=== PATIENT | female | born 1970 | race Two or more races ===

== ENCOUNTER → 2020-02-06 11:59 | Outpatient (CLI) | payer OTHER | END | disposition home or self-care (01) | LOC: LAB 11:59 | DX: E03.8 Other specified hypothyroidism (principal); Z13.6 Encounter for screening for cardiovascular disorders; Z00.00 Encounter for general adult medical examination without abnormal findings; Z13.1 Encounter for screening for diabetes mellitus; E28.310 Symptomatic premature menopause; E55.9 Vitamin D deficiency, unspecified; M54.5 Low back pain ==

== ENCOUNTER → 2020-02-06 | Outpatient (CLI) | payer OTHER | END | disposition home or self-care (01) | LOC: MAMO-SONO 12:37 | DX: Z12.31 Encounter for screening mammogram for malignant neoplasm of breast (principal) ==

== ENCOUNTER 2020-02-19 11:33 | Outpatient (CLI) | payer OTHER | END 2020-02-19 11:43 | disposition home or self-care (01) | LOC: SONOGRAMA 11:33 → MAMO-SONO 13:15 | PROVIDERS: ATTEND Obstetrics & Gynecology | DX: N91.1 Secondary amenorrhea (principal) ==

== ENCOUNTER 2020-02-19 13:18 | Outpatient (CLI) | payer OTHER | END 2020-02-19 13:42 | disposition home or self-care (01) | LOC: NUCLEAR 13:18 | DX: M81.8 Other osteoporosis without current pathological fracture (principal); Z13.820 Encounter for screening for osteoporosis ==

== ENCOUNTER → 2020-03-11 12:23 | Outpatient (CLI) | payer OTHER | END | disposition home or self-care (01) | LOC: LAB 12:23 | PROVIDERS: ATTEND Radiology Diagnostic Radiology | DX: N20.0 Calculus of kidney (principal) ==

== ENCOUNTER 2020-05-13 08:51 | Outpatient (CLI) | payer OTHER | END 2020-05-13 08:56 | disposition home or self-care (01) | LOC: LAB 08:51 | DX: E22.1 Hyperprolactinemia (principal) ==

== ENCOUNTER 2023-02-01 14:15 | Outpatient (CLI) | payer OTHER | END 2023-02-01 14:17 | disposition home or self-care (01) | LOC: LAB 14:15 | DX: N95.1 Menopausal and female climacteric states (principal); E55.9 Vitamin D deficiency, unspecified ==

== ENCOUNTER 2023-02-15 14:23 | Outpatient (CLI) | payer OTHER | END 2023-02-15 14:27 | disposition home or self-care (01) | LOC: LAB 14:23 | PROVIDERS: ATTEND Obstetrics & Gynecology | DX: N30.00 Acute cystitis without hematuria (principal) ==

== ENCOUNTER → 2023-02-19 | Outpatient (CLI) | payer OTHER | END | disposition home or self-care (01) | LOC: NUCLEAR 12:54 | PROVIDERS: ATTEND Obstetrics & Gynecology | DX: M81.0 Age-related osteoporosis without current pathological fracture (principal) ==

== ENCOUNTER → 2024-02-08 09:43 | Outpatient (CLI) | payer OTHER ==
[2024-02-08 10:55] LABS: HEMATOCRIT 39.4 % (36.0-45.00); HEMOGLOBIN 13.6 g/dL (12.0-15.00); MEAN CELL VOLUME 93.2 fL (80.00-100.00); MEAN CORPUSCULAR HEMOGLOBIN 32.1 pg (27.00-32.0); MEAN CORPUSCULAR HGB CONC 34.5 g/dl (32.0-36.0); PLATELET COUNT 213 K/uL (150-450); RED BLOOD COUNT 4.23 M/uL (4.00-6.00); RED CELL DISTRIBUTION WIDTH 13.5 % (11.5-14.5)
[2024-02-08 10:56] LABS: URINE APPEARANCE Clear; URINE BILIRRUBIN Negative (NEGATIVE); URINE BLOOD Negative; URINE COLOR Yellow; URINE GLUCOSE Negative (NEGATIVE); URINE LEUKOCYTE Negative; URINE NITRATE Negative; URINE PROTEIN Negative (NEGATIVE); URINE UROBILINOGEN 0.2 E.U./dl
[2024-02-08 11:12] LABS: URINE BACTERIA 2.5 uL (0.0-1933); URINE EPITHELIAL CELLS 0.4 uL (0.0-38.8); URINE RBC 1.9 uL (0.0-20.8); URINE WBC 0.9 uL (0.0-23.2)
[2024-02-08 11:42] LABS: ALBUMIN 4.4 gm/dL (3.4-5.0); BILIRUBIN TOTAL 0.39 mg/dL (0.3-1.2); CALCIUM 10.1 mg/dL (8.5-10.1); CHOL HDL RATIO 3.2 (0-5.0); CREATININE SERUM 0.91 mg/dL (0.55-1.02); GFR 64.92; GLOBULINA 3.2 G/DL (2.4-3.5); POTASSIUM 4.38 mEq/L (3.5-5.1); TOTAL PROTEIN 7.6 gm/dL (6.4-8.2); TSH 2.06 uIU/mL (0.358-3.74)
[2024-02-09 11:12] LABS: LEUTEINIZING HORMONE 33.5 mIU/mL (.)
== END | disposition home or self-care (01) ==
LOC: LAB 09:43
PROVIDERS: ATTEND Obstetrics & Gynecology
DX: E55.9 Vitamin D deficiency, unspecified (principal); E34.9 Endocrine disorder, unspecified; E78.9 Disorder of lipoprotein metabolism, unspecified; N39.0 Urinary tract infection, site not specified; E78.5 Hyperlipidemia, unspecified; N91.2 Amenorrhea, unspecified

== ENCOUNTER 2024-02-08 10:19 | Outpatient (CLI) | payer OTHER | END 2024-02-08 10:23 | disposition home or self-care (01) | LOC: MAMO-SONO 10:19 | PROVIDERS: ATTEND Obstetrics & Gynecology | DX: N64.59 Other signs and symptoms in breast (principal) ==

== ENCOUNTER → 2024-05-15 16:35 | Outpatient (CLI) | payer OTHER ==
[2024-05-15 18:26] LABS: CREATININE SERUM 0.79 mg/dL (0.55-1.02); GFR 76.13
== END | disposition home or self-care (01) ==
LOC: LAB 16:35
DX: Z01.812 Encounter for preprocedural laboratory examination (principal)

== ENCOUNTER 2024-06-23 07:08 | Day surgery (SDC) | payer OTHER ==
[2024-06-21 09:02] LABS: PH,URINE 5.5 (5.0-8.0); URINE APPEARANCE Clear; URINE BILIRRUBIN Negative (NEGATIVE); URINE BLOOD Negative; URINE COLOR Yellow; URINE GLUCOSE Negative (NEGATIVE); URINE KETONE Negative (NEGATIVE); URINE LEUKOCYTE Negative; URINE NITRATE Negative; URINE PROTEIN Negative (NEGATIVE); URINE UROBILINOGEN 0.2 E.U./dl
[2024-06-21 09:06] LABS: URINE BACTERIA 20.1 uL (0.0-1933); URINE EPITHELIAL CELLS 1.6 uL (0.0-38.8); URINE RBC 11.9 uL (0.0-20.8); URINE WBC 2.6 uL (0.0-23.2)
[2024-06-21 09:07] LABS: HEMATOCRIT 41.2 % (36.0-45.00); HEMOGLOBIN 14.2 g/dL (12.0-15.00); MEAN CELL VOLUME 92.5 fL (80.00-100.00); MEAN CORPUSCULAR HGB CONC 34.5 g/dl (32.0-36.0); PLATELET COUNT 199 K/uL (150-450); RED BLOOD COUNT 4.45 M/uL (4.00-6.00); RED CELL DISTRIBUTION WIDTH 13.7 % (11.5-14.5)
[2024-06-21 09:19] LABS: INR 0.97; PARTIAL THROMBOPLASTIN TIME 27.3 SECONDS (22.0-34.0); PROTHROMBIN TIME 10.6 SECONDS (9.0-11.5)
[2024-06-21 09:54] LABS: ALBUMIN 4.3 gm/dL (3.4-5.0); BILIRUBIN TOTAL 0.26 mg/dL (0.3-1.2); CALCIUM 9.6 mg/dL (8.5-10.1); CREATININE SERUM 0.82 mg/dL (0.55-1.02); GFR 72.92; GLOBULINA 3.3 G/DL (2.4-3.5); POTASSIUM 4.08 mEq/L (3.5-5.1); TOTAL PROTEIN 7.6 gm/dL (6.4-8.2)
[2024-06-21 10:00] VITALS: BP 116/79
[~2024-06-23] VITALS: Ht 162.6 cm; Wt 81.6 kg
[2024-06-23] MEDS ORDERED: CIPROFLOXACIN IN 5 % DEXTROSE 400 MG/200 ML PIGGYBAG IV ONE (22:45)
[2024-06-23] MEDS ORDERED: CHLORHEXIDINE GLUCONATE 120 ML BOTTLE TOP ONE (22:45)
[2024-06-24] MEDS ORDERED: MORPHINE SULFATE 4 MG/ML VIAL IV ONE ×2 (01:25→01:55)
== END 2024-06-24 03:15 | disposition home or self-care (01) ==
LOC: CIR.AMB 07:08
PROVIDERS: ATTEND Surgery
DX: C50.411 Malignant neoplasm of upper-outer quadrant of right female breast (principal); R59.0 Localized enlarged lymph nodes

== ENCOUNTER 2024-09-23 07:22 | Outpatient (CLI) | payer OTHER ==
[2024-09-23 08:22] LABS: HEMATOCRIT 39.9 % (36.0-45.00); HEMOGLOBIN 13.5 g/dL (12.0-15.00); MEAN CELL VOLUME 92.4 fL (80.00-100.00); MEAN CORPUSCULAR HEMOGLOBIN 31.2 pg (27.00-32.0); MEAN CORPUSCULAR HGB CONC 33.8 g/dl (32.0-36.0); PLATELET COUNT 208 K/uL (150-450); RED BLOOD COUNT 4.31 M/uL (4.00-6.00); RED CELL DISTRIBUTION WIDTH 13.2 % (11.5-14.5)
[2024-09-23 09:18] LABS: BILIRUBIN TOTAL 0.3 mg/dL (0.3-1.2); CALCIUM 9.6 mg/dL (8.5-10.1); CREATININE SERUM 0.82 mg/dL (0.55-1.02); GFR 72.92; GLOBULINA 3.4 G/DL (2.4-3.5); POTASSIUM 4.41 mEq/L (3.5-5.1); TOTAL PROTEIN 7.4 gm/dL (6.4-8.2)
== END 2024-09-23 07:26 | disposition home or self-care (01) ==
LOC: LAB 07:22
PROVIDERS: ATTEND Internal Medicine
DX: C50.811 Malignant neoplasm of overlapping sites of right female breast (principal); Z51.11 Encounter for antineoplastic chemotherapy; D70.1 Agranulocytosis secondary to cancer chemotherapy; R11.0 Nausea

== ENCOUNTER → 2024-10-07 10:22 | Outpatient (CLI) | payer OTHER ==
[2024-10-07 12:53] LABS: HEMATOCRIT 37.2 % (36.0-45.00); HEMOGLOBIN 12.9 g/dL (12.0-15.00); MEAN CELL VOLUME 90.9 fL (80.00-100.00); MEAN CORPUSCULAR HEMOGLOBIN 31.6 pg (27.00-32.0); MEAN CORPUSCULAR HGB CONC 34.8 g/dl (32.0-36.0); PLATELET COUNT 214 K/uL (150-450); RED BLOOD COUNT 4.09 M/uL (4.00-6.00); RED CELL DISTRIBUTION WIDTH 13.7 % (11.5-14.5)
[2024-10-07 13:07] LABS: ALBUMIN 3.9 gm/dL (3.4-5.0); BILIRUBIN TOTAL 0.47 mg/dL (0.3-1.2); CALCIUM 9.6 mg/dL (8.5-10.1); CREATININE SERUM 0.7 mg/dL (0.55-1.02); GFR 87.53; GLOBULINA 3.1 G/DL (2.4-3.5); POTASSIUM 4.62 mEq/L (3.5-5.1)
== END | disposition home or self-care (01) ==
LOC: LAB 10:22
PROVIDERS: ATTEND Internal Medicine
DX: C50.811 Malignant neoplasm of overlapping sites of right female breast (principal); Z51.11 Encounter for antineoplastic chemotherapy; D70.1 Agranulocytosis secondary to cancer chemotherapy; R11.0 Nausea

== ENCOUNTER 2024-10-14 09:46 | Outpatient (CLI) | payer OTHER ==
[2024-10-14 11:12] LABS: HEMATOCRIT 38.6 % (36.0-45.00); HEMOGLOBIN 13.4 g/dL (12.0-15.00); MEAN CELL VOLUME 90.6 fL (80.00-100.00); MEAN CORPUSCULAR HEMOGLOBIN 31.4 pg (27.00-32.0); MEAN CORPUSCULAR HGB CONC 34.6 g/dl (32.0-36.0); PLATELET COUNT 179 K/uL (150-450); RED BLOOD COUNT 4.26 M/uL (4.00-6.00); RED CELL DISTRIBUTION WIDTH 14.5 % (11.5-14.5)
[2024-10-14 11:25] LABS: ALBUMIN 3.9 gm/dL (3.4-5.0); BILIRUBIN TOTAL 0.43 mg/dL (0.3-1.2); CALCIUM 9.4 mg/dL (8.5-10.1); CREATININE SERUM 0.68 mg/dL (0.55-1.02); GFR 90.51; GLOBULINA 3.4 G/DL (2.4-3.5); POTASSIUM 4.9 mEq/L (3.5-5.1); TOTAL PROTEIN 7.3 gm/dL (6.4-8.2)
== END 2024-10-14 09:47 | disposition home or self-care (01) ==
LOC: LAB 09:46
PROVIDERS: ATTEND Internal Medicine
DX: C50.811 Malignant neoplasm of overlapping sites of right female breast (principal); Z51.11 Encounter for antineoplastic chemotherapy; D70.1 Agranulocytosis secondary to cancer chemotherapy; R11.0 Nausea

== ENCOUNTER 2024-10-21 09:23 | Outpatient (CLI) | payer OTHER ==
[2024-10-21 10:09] LABS: HEMATOCRIT 38.8 % (36.0-45.00); HEMOGLOBIN 13.1 g/dL (12.0-15.00); MEAN CELL VOLUME 91.5 fL (80.00-100.00); MEAN CORPUSCULAR HGB CONC 33.9 g/dl (32.0-36.0); PLATELET COUNT 240 K/uL (150-450); RED BLOOD COUNT 4.24 M/uL (4.00-6.00); RED CELL DISTRIBUTION WIDTH 14.8 % (11.5-14.5)
[2024-10-21 10:46] LABS: ALBUMIN 4.1 gm/dL (3.4-5.0); BILIRUBIN TOTAL 0.47 mg/dL (0.3-1.2); CALCIUM 9.5 mg/dL (8.5-10.1); CREATININE SERUM 0.71 mg/dL (0.55-1.02); GFR 86.11; GLOBULINA 3.2 G/DL (2.4-3.5); POTASSIUM 4.36 mEq/L (3.5-5.1); TOTAL PROTEIN 7.3 gm/dL (6.4-8.2)
== END 2024-10-21 09:25 | disposition home or self-care (01) ==
LOC: LAB 09:23
PROVIDERS: ATTEND Internal Medicine
DX: C50.811 Malignant neoplasm of overlapping sites of right female breast (principal); Z51.11 Encounter for antineoplastic chemotherapy; D70.1 Agranulocytosis secondary to cancer chemotherapy; R11.0 Nausea

== ENCOUNTER 2024-10-28 09:01 | Outpatient (CLI) | payer OTHER ==
[2024-10-28 10:30] LABS: HEMATOCRIT 37.8 % (36.0-45.00); HEMOGLOBIN 13.2 g/dL (12.0-15.00); MEAN CORPUSCULAR HEMOGLOBIN 31.5 pg (27.00-32.0); PLATELET COUNT 237 K/uL (150-450); RED CELL DISTRIBUTION WIDTH 15.2 % (11.5-14.5)
[2024-10-28 10:55] LABS: BILIRUBIN TOTAL 0.32 mg/dL (0.3-1.2); CALCIUM 9.9 mg/dL (8.5-10.1); CREATININE SERUM 0.81 mg/dL (0.55-1.02); GFR 73.96; GLOBULINA 3.3 G/DL (2.4-3.5); POTASSIUM 4.87 mEq/L (3.5-5.1); TOTAL PROTEIN 7.3 gm/dL (6.4-8.2)
== END 2024-10-28 09:02 | disposition home or self-care (01) ==
LOC: LAB 09:01
PROVIDERS: ATTEND Internal Medicine
DX: C50.811 Malignant neoplasm of overlapping sites of right female breast (principal); Z51.11 Encounter for antineoplastic chemotherapy; D70.1 Agranulocytosis secondary to cancer chemotherapy; R11.0 Nausea

== ENCOUNTER 2024-11-04 08:54 | Outpatient (CLI) | payer OTHER ==
[2024-11-04 09:58] LABS: HEMATOCRIT 38.2 % (36.0-45.00); MEAN CELL VOLUME 92.3 fL (80.00-100.00); MEAN CORPUSCULAR HEMOGLOBIN 31.3 pg (27.00-32.0); PLATELET COUNT 223 K/uL (150-450); RED BLOOD COUNT 4.14 M/uL (4.00-6.00); RED CELL DISTRIBUTION WIDTH 15.8 % (11.5-14.5)
[2024-11-04 10:48] LABS: ALBUMIN 3.8 gm/dL (3.4-5.0); BILIRUBIN TOTAL 0.41 mg/dL (0.3-1.2); CALCIUM 9.3 mg/dL (8.5-10.1); CREATININE SERUM 0.7 mg/dL (0.55-1.02); GFR 87.53; GLOBULINA 3.2 G/DL (2.4-3.5); POTASSIUM 4.48 mEq/L (3.5-5.1)
== END 2024-11-04 08:56 | disposition home or self-care (01) ==
LOC: LAB 08:54
PROVIDERS: ATTEND Internal Medicine
DX: C50.811 Malignant neoplasm of overlapping sites of right female breast (principal); Z51.11 Encounter for antineoplastic chemotherapy; D70.1 Agranulocytosis secondary to cancer chemotherapy; R11.0 Nausea

== ENCOUNTER 2024-11-25 11:33 | Outpatient (CLI) | payer OTHER ==
[2024-11-25 11:58] LABS: BASO % 0.6 % (0.1-1.2); EOS # 0.07 (0.04-0.54); EOS % 1.1 % (0.7-7.0); HEMATOCRIT 36.2 % (34.1-44.9); HEMOGLOBIN 12.6 g/dL (11.2-15.7); LYMPH # 1.72 (1.18-3.74); LYMPH % 27.3 % (19.3-53.1); MEAN CORPUSCULAR HEMOGLOBIN 31.2 pg (25.6-32.2); MONO # 0.29 (0.24-0.82); MONO % 4.6 % (4.7-12.5); NEUT # 4.17 (1.56-6.13); NEUT % 66.2 % (34.0-71.1); PLATELET COUNT 257 K/uL (163-369); RED BLOOD COUNT 4.04 M/uL (3.93-5.22); RED CELL DISTRIBUTION WIDTH 15.2 % (11.6-14.4)
[2024-11-25 12:26] LABS: ALBUMIN 3.7 gm/dL (3.4-5.0); BILIRUBIN TOTAL 0.58 mg/dL (0.3-1.2); CALCIUM 9.2 mg/dL (8.5-10.1); CREATININE SERUM 0.78 mg/dL (0.55-1.02); GFR 77.26; GLOBULINA 3.1 G/DL (2.4-3.5); POTASSIUM 4.59 mEq/L (3.5-5.1); TOTAL PROTEIN 6.8 gm/dL (6.4-8.2)
[2024-11-25 14:44] LABS: PLATELET COUNT 257 K/uL (150-450)
== END 2024-11-25 11:37 | disposition home or self-care (01) ==
LOC: LAB 11:33
DX: C50.811 Malignant neoplasm of overlapping sites of right female breast (principal); Z51.11 Encounter for antineoplastic chemotherapy; D70.1 Agranulocytosis secondary to cancer chemotherapy; R11.0 Nausea

== ENCOUNTER 2024-12-02 08:50 | Outpatient (CLI) | payer OTHER ==
[2024-12-02 10:38] LABS: BILIRUBIN TOTAL 0.56 mg/dL (0.3-1.2); CALCIUM 9.1 mg/dL (8.5-10.1); CREATININE SERUM 0.79 mg/dL (0.55-1.02); GFR 76.13; GLOBULINA 3.1 G/DL (2.4-3.5); POTASSIUM 4.64 mEq/L (3.5-5.1); TOTAL PROTEIN 7.1 gm/dL (6.4-8.2)
[2024-12-02 11:53] LABS: BASO % 0.8 % (0.1-1.2); EOS # 0.05 (0.04-0.54); EOS % 1.3 % (0.7-7.0); HEMATOCRIT 36.5 % (34.1-44.9); HEMOGLOBIN 12.5 g/dL (11.2-15.7); LYMPH # 1.42 (1.18-3.74); LYMPH % 36.7 % (19.3-53.1); MEAN CORPUSCULAR HEMOGLOBIN 31.6 pg (25.6-32.2); MONO # 0.14 (0.24-0.82); MONO % 3.6 % (4.7-12.5); NEUT # 2.22 (1.56-6.13); NEUT % 57.3 % (34.0-71.1); PLATELET COUNT 280 K/uL (163-369); RED BLOOD COUNT 3.96 M/uL (3.93-5.22); RED CELL DISTRIBUTION WIDTH 14.8 % (11.6-14.4)
== END 2024-12-02 08:55 | disposition home or self-care (01) ==
LOC: LAB 08:50
DX: C50.811 Malignant neoplasm of overlapping sites of right female breast (principal); Z51.11 Encounter for antineoplastic chemotherapy; D70.1 Agranulocytosis secondary to cancer chemotherapy; R11.0 Nausea

== ENCOUNTER 2024-12-09 08:56 | Outpatient (CLI) | payer OTHER ==
[2024-12-09 09:42] LABS: BASO % 0.5 % (0.1-1.2); EOS # 0.01 (0.04-0.54); EOS % 0.3 % (0.7-7.0); HEMOGLOBIN 12.1 g/dL (11.2-15.7); LYMPH # 1.14 (1.18-3.74); LYMPH % 28.6 % (19.3-53.1); MEAN CORPUSCULAR HEMOGLOBIN 31.8 pg (25.6-32.2); MONO # 0.12 (0.24-0.82); NEUT # 2.67 (1.56-6.13); NEUT % 66.8 % (34.0-71.1); PLATELET COUNT 274 K/uL (163-369); RED BLOOD COUNT 3.81 M/uL (3.93-5.22); RED CELL DISTRIBUTION WIDTH 15.1 % (11.6-14.4)
[2024-12-09 10:14] LABS: ALBUMIN 3.8 gm/dL (3.4-5.0); BILIRUBIN TOTAL 0.55 mg/dL (0.3-1.2); CALCIUM 9.3 mg/dL (8.5-10.1); CREATININE SERUM 0.76 mg/dL (0.55-1.02); GFR 79.61; POTASSIUM 4.72 mEq/L (3.5-5.1); TOTAL PROTEIN 6.8 gm/dL (6.4-8.2)
== END 2024-12-09 08:57 | disposition home or self-care (01) ==
LOC: LAB 08:56
DX: C50.811 Malignant neoplasm of overlapping sites of right female breast (principal); Z51.11 Encounter for antineoplastic chemotherapy; D70.1 Agranulocytosis secondary to cancer chemotherapy; R11.0 Nausea